=== PATIENT | female | born 1970 | race Caucasian/White ===

== ENCOUNTER → 2017-05-01 | Outpatient (CLI) | payer OTHER ==
--- NOTE | ~2017-05-01 | US98 ---
[facility] A Service of [facility] RADIOLOGY TEXT RESULTS PATIENT: LUANN YEAGER LOCATION: [facility] : 72 UNIT #: [id number] AGE: [address]: AFSHAN PAIGE APRN SEX: F ORDER DR: [id number] [facility] [address] [place], [place] [address] [id number] O MR#: [id number] Acc #: [id number] NAME: LUANN YEAGER : 1970 SEX: F STUDY DATE/TIME: 05/01/2017 14:16 UNIT: [facility] ROOM: STUDY DESCRIPTION: US Pelvic Non-OB Complete Attending Physician: Afshan Paige Aprn Referring Physician: Afshan Paige Aprn Ordering Physician: Afshan Paige Aprn Primary Care Physician: Afshan Paige Aprn MEDICAL IMAGING REPORT This report is preliminary unless electronic signature is present EXAM Pelvic ultrasound INDICATION Abnormal uterine bleeding. Bleeding weekly for the past 3 months. PROCEDURE Butt-scale and Doppler imaging of the pelvis via transabdominal and transvaginal approach. FINDINGS Pelvic structures are not well seen transabdominally. On transvaginal images, uterus is anteverted measures 6.1 x 3.8 x 4.7 cm. Endometrium measures 1.3 cm in thickness. There are several nabothian cysts in the cervix measuring up to 1.3 cm. Cyst in the left ovary measuring up to 1.3 cm. The right ovary is not well seen. No appreciable adnexal mass. IMPRESSION 1. The endometrium measures up to 1.3 cm in thickness, possibly related to the phase of patient's menstrual status. This could be followed in 6 weeks at a different time of the menstrual cycle if desired clinically. 2. Nabothian cysts in the cervix. 3. A few small cysts in the left ovary probably representing benign functional cysts. 4. The right ovary is not well seen but there is no appreciable adnexal mass. Dictated by... Josef Boss M.D. [facility] A Service of [facility] RADIOLOGY TEXT RESULTS PATIENT: LUANN YEAGER LOCATION: [facility] #: [id number] : [birth year] UNIT #: [id number] AGE: [address]: AFSHNA PAIGE APRN SEX: F ORDER DR: THIS IS AN ELECTRONICALLY VERIFIED REPORT Josef Boss M.D. at 05/06/2017 2:32 PM Michele TD: 05/04/2017 10:43 JOB #: [id number] MEDICAL IMAGING REPORT Page 1 of 1 COPY
== END | disposition home or self-care (01) ==
LOC: CWCC 11:45 → CGUS 13:43
DX: N93.9 Abnormal uterine and vaginal bleeding, unspecified (principal); N88.8 Other specified noninflammatory disorders of cervix uteri; N83.202 Unspecified ovarian cyst, left side
CPT/HCPCS: 76830; 76856